=== PATIENT | female | born 1990 | race Caucasian/White ===

== ENCOUNTER 2018-02-12 15:07 | Emergency (ER) | payer OTHER ==
[~2018-02-12] VITALS: Ht 154.9 cm; Wt 51.7 kg
[2018-02-12] MEDS ORDERED: FLEXERIL10 MG PO (18:24)
[2018-02-12 19:03] VITALS: BP 94/79
== END 2018-02-12 19:04 | disposition home or self-care (01) ==
LOC: EME 15:07
DX: S46.919A Strain of unspecified muscle, fascia and tendon at shoulder and upper arm level, unspecified arm, initial encounter (principal); M54.2 Cervicalgia; M54.6 Pain in thoracic spine; W01.0XXA Fall on same level from slipping, tripping and stumbling without subsequent striking against object, initial encounter; Y99.0 Civilian activity done for income or pay; Q05.2 Lumbar spina bifida with hydrocephalus; Z98.2 Presence of cerebrospinal fluid drainage device; M41.85 Other forms of scoliosis, thoracolumbar region; M41.87 Other forms of scoliosis, lumbosacral region
CPT/HCPCS: 70250; 71045; 72040; 72070; 74018; 99281; 99284